=== PATIENT | male | born 1995 | race Caucasian/White ===

== ENCOUNTER 2017-12-23 09:49 | Emergency (ER) | payer BC, OTHER ==
[~2017-12-23] VITALS: Ht 185.4 cm; Wt 153.0 kg
[~2017-12-23 09:49] MED LIST: ACET80CH6 CHEW; MELO7.5 PO; TERB250 PO; ULTR50TA PO; [UNRECOGNIZED DRUG - CODE]
[2017-12-23 09:50] VITALS: BP 163/95; PULSE 78; RESP 18; TEMP 97.8; O2SAT 98
--- NOTE | 2017-12-23 10:40 | PD ---
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 He had a fairly sudden onset of nausea and dizziness. He had profuse sweating. He thought he was going to pass out. Implants were fairly persistent. He developed a pounding headache on the left side of his head. He does not have any numbness or tingling. He does not have any weakness. He is generally healthy. He is not on any medications. He has had some headaches in the past but has never been treated for migraine headaches. [facility] Social History Alcohol Use: No Tobacco Use: No Substance Use: No Allergies-Medications (Allergen,Severity, Reaction): Coded Allergies: No Known Allergies (Verified Adverse Reaction, Unknown, 12/23/17) Reported Meds & Prescriptions Reported Meds & Active Scripts Active No Active Prescriptions or Reported Medications Review of Systems General / Constitutional: No: Fever, Chills Eyes: No: Diploplia, Blurred Vision HENT: Positive: Headaches, Lightheadedness Cardiovascular: No: Chest Pain or Discomfort, Palpitations Respiratory: No: Cough, Shortness of Breath Gastrointestinal: Positive: Nausea Genitourinary: No: Urgency, Frequency Musculoskeletal: No: Myalgias, Arthralgias Skin: No Rash, No Itching Neurologic: Positive: Dizziness Psychiatric: No: Anxiety, Depression Hematologic/Lymphatic: No: Easy Bruising Physical Exam Narrative GENERAL: Well-developed male SKIN: Focused skin assessment warm/dry. HEAD: Atraumatic. Normocephalic. EYES: Pupils equal and round. No scleral icterus. No injection or drainage. ENT: No nasal bleeding or discharge. Mucous membranes pink and moist. NECK: Trachea midline. No JVD. CARDIOVASCULAR: Regular rate and rhythm. No murmur appreciated. RESPIRATORY: No accessory muscle use. Clear to auscultation. Breath sounds equal bilaterally. GASTROINTESTINAL: Abdomen soft, non-tender, nondistended. Hepatic and splenic margins not palpable. MUSCULOSKELETAL: No obvious deformities. No clubbing. No cyanosis. No edema. NEUROLOGICAL: Awake and alert. No obvious cranial nerve deficits. Motor grossly within normal limits. Normal speech. PSYCHIATRIC: Appropriate mood and affect; insight and judgment normal. Data Data Last Documented VS Vital Signs Date Time Temp Pulse Resp B/P (MAP) Pulse Ox O2 Delivery O2 Flow Rate FiO2 12/23/17 10:51 88 20 127/66 (86) 97 12/23/17 09:50 97.8 Orders Orders Electrocardiogram (12/23/17 10:36) Complete Blood Count With Diff (12/23/17 10:36) Basic Metabolic Panel (Bmp) (12/23/17 10:36) Troponin I (12/23/17 10:36) Sodium Chlor 0.9% 1000 Ml Inj (Ns 1000 M (12/23/17 10:45) Prochlorperazine Inj (Compazine Inj) (12/23/17 10:45) Ketorolac Inj (Toradol Inj) (12/23/17 11:15) Labs Laboratory Tests Test 12/23/17 10:40 White Blood Count 9.3 TH/MM3 Red Blood Count 5.90 MIL/MM3 Hemoglobin 16.1 GM/DL Hematocrit 48.3 % Mean Corpuscular Volume 81.7 FL Mean Corpuscular Hemoglobin 27.3 PG Mean Corpuscular Hemoglobin Concent 33.4 % Red Cell Distribution Width 12.4 % Platelet Count 236 TH/MM3 Mean Platelet Volume 7.6 FL Neutrophils (%) (Auto) 67.1 % Lymphocytes (%) (Auto) 21.7 % Monocytes (%) (Auto) 8.9 % Eosinophils (%) (Auto) 1.8 % Basophils (%) (Auto) 0.5 % Neutrophils # (Auto) 6.3 TH/MM3 Lymphocytes # (Auto) 2.0 TH/MM3 Monocytes # (Auto) 0.8 TH/MM3 Eosinophils # (Auto) 0.2 TH/MM3 Basophils # (Auto) 0.0 TH/MM3 CBC Comment DIFF FINAL Differential Comment Blood Urea Nitrogen 11 MG/DL Creatinine 1.00 MG/DL Random Glucose 89 MG/DL Calcium Level 9.1 MG/DL Sodium Level 140 MEQ/L Potassium Level 4.0 MEQ/L Chloride Level 106 MEQ/L Carbon Dioxide Level 25.7 MEQ/L Anion Gap 8 MEQ/L Estimat Glomerular Filtration Rate 92 ML/MIN Troponin I LESS THAN 0.02 NG/ML MDM Medical Decision Making Medical Screen Exam Complete: Yes Emergency Medical Condition: Yes Medical Record Reviewed: Yes Differential Diagnosis Differential includes dysrhythmia, exhaustion, viral syndrome Narrative Course EKG shows a normal sinus rhythm. Patient has been given some Compazine and Toradol. He reports feeling better. Lab work is unremarkable. Patient may be having onset of a viral illness. I will recommend he go home to rest Diagnosis Primary Impression: Viral syndrome Additional Instructions: Rest, force fluids Scripts No Active Prescriptions or Reported Meds Disposition: 01 DISCHARGE HOME Condition: Stable Christian Nguyen MD Dec 23, 2017 10:40
[2017-12-23] MEDS ORDERED: SODIUM CHLOR 0.9% 1000 ML INJ 1,000 ML IV ONE (10:45)
[2017-12-23] MEDS ORDERED: PROCHLORPERAZINE INJ 10 MG/2 ML VIAL IV PUSH ONE (10:45)
[2017-12-23 10:51] VITALS: BP 127/66; PULSE 88; RESP 20; O2SAT 97
[2017-12-23 10:52] LABS: AUTOMATED NEUTROPHIL # 6.3 TH/MM3 (1.8-7.7); BASOPHIL % 0.5 % (0.0-2.0); EOSINOPHIL # 0.2 TH/MM3 (0-0.4); EOSINOPHIL % 1.8 % (0.0-4.0); HEMATOCRIT 48.3 % (39.0-51.0); HEMOGLOBIN 16.1 GM/DL (13.0-17.0); LYMPH % 21.7 % (9.0-44.0); MEAN CELL VOLUME 81.7 FL (80.0-100.0); MEAN CORPUSCULAR HEMOGLOBIN 27.3 PG (27.0-34.0); MEAN CORPUSCULAR HGB CONC 33.4 % (32.0-36.0); MEAN PLATELET VOLUME 7.6 FL (7.0-11.0); MONO % 8.9 % (0.0-8.0); MONOCYTE # 0.8 TH/MM3 (0-0.9); NEUT % 67.1 % (16.0-70.0); PLATELET COUNT 236 TH/MM3 (150-450); RED CELL DISTRIBUTION WIDTH 12.4 % (11.6-17.2); WHITE BLOOD COUNT 9.3 TH/MM3 (4.0-11.0)
[2017-12-23 11:07] LABS: CHLORIDE 106 MEQ/L (98-107); SODIUM (NA) 140 MEQ/L (136-145)
[2017-12-23 11:11] LABS: BICARBONATE 25.7 MEQ/L (21.0-32.0); BLOOD UREA NITROGEN 11 MG/DL (7-18); CALCIUM 9.1 MG/DL (8.5-10.1); GLUCOSE,RANDOM 89 MG/DL (74-106)
[2017-12-23 11:14] LABS: GLOMERULAR FILTRATION RATE 92 ML/MIN (>89)
[2017-12-23] MEDS ORDERED: KETOROLAC TROMETHAMINE 30 MG/ML (IVP) VIAL IV PUSH ONE (11:15)
[2017-12-23 11:19] LABS: TROPONIN I LESS THAN 0.02 NG/ML (0.02-0.05)
[2017-12-23 11:54] VITALS: BP 117/70
--- NOTE | 2017-12-23 21:16 | EKG ---
Date Performed: 12/23/2017 Time Performed: 10:49:17 PTAGE: 22 years EKG: Sinus rhythm NORMAL ECG NO PREVIOUS TRACING DOCTOR: Nubia Haile Interpretating Date/Time 12/23/2017 21:14:28
== END 2017-12-23 11:58 | disposition home or self-care (01) ==
LOC: PHED 09:49
DX: B34.9 Viral infection, unspecified (principal); R42 Dizziness and giddiness
CPT/HCPCS: 80048; 84484; 85025; 93005; 96374; 96375; 99284; J0780; J1885; J7030

== ENCOUNTER 2018-02-04 13:29 | Emergency (ER) | payer OTHER, BC ==
[~2018-02-04] VITALS: Ht 185.4 cm; Wt 145.0 kg
[2018-02-04 13:50] VITALS: BP 145/89; PULSE 74; RESP 17; TEMP 98.2; O2SAT 98
[2018-02-04] MEDS ORDERED: CYCL10TA PO (14:08)
[2018-02-04] MEDS ORDERED: IBUP-232 PO (14:08)
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
[2018-02-04] MEDS ORDERED: IBUPROFEN 600 MG TAB PO ONE (14:15)
== END 2018-02-04 14:23 | disposition home or self-care (01) ==
LOC: NEPD 13:29
DX: S16.1XXA Strain of muscle, fascia and tendon at neck level, initial encounter (principal); M54.6 Pain in thoracic spine; V43.52XA Car driver injured in collision with other type car in traffic accident, initial encounter
CPT/HCPCS: 99283